=== PATIENT | female | born 2000 | race American Indian/Alaskan Native ===

== ENCOUNTER 2021-03-05 21:11 | Emergency (ER) | payer MEDICAID ==
[2021-03-05 21:17] VITALS: BP 129/49
--- NOTE | 2021-03-05 21:26 | Emergency Department Report ---
ED Female HPI - General Chief complaint: Vaginal Bleeding Stated complaint: VAGINAL BLEEDING Time Seen by Provider: 03/05/21 21:25 Source: patient, RN notes reviewed Mode of arrival: Wheelchair Limitations: No Limitations - History of Present Illness Initial comments: During the history and physical examination, I am chaperoned by Sweetie Akers The patient is a 20-year-old female. She is not known to myself previously. She is 2. She is para 1. She believes that she is having a miscarriage. She presents to the ER today with complaint of lower abdominal cramping, contractions and intermittent vaginal bleeding. She reports that she was seen earlier on today, at [facility], and had laboratory studies, including urinalysis, and an ultrasound performed. However, the patient is uncertain as to her discharge diagnosis. She currently denies headache, neck pain, chest pain, she is nauseous and vomiting, she denies urinary symptoms. She is abdominal cramping, and vaginal bleeding. MD Complaint: vaginal bleeding -: Gradual, days(s) Location: suprapubic Severity: mild Quality: cramping Consistency: intermittent Improves with: other (Rest and position, laying on left hand side) Worsens with: other (Position, palpation) Are you Now?: Yes Associated Symptoms: vaginal bleeding, abdominal pain, nausea/vomiting - Related Data Previous Rx's Medication Instructions Recorded Last Taken Type Acetaminophen [Non-Aspirin Extra 500 mg PO Q6HR PRN #30 tablet 03/06/21 Unknown Rx Strength] Morphine Sulfate [Morphine Sulfate 7.5 mg PO Q6HR PRN #10 tablet 03/06/21 Unknown Rx IR] Ondansetron [Zofran Odt] 4 mg PO Q8HR PRN #20 tab.rapdis 03/06/21 Unknown Rx Allergies Allergy/AdvReac Type Severity Reaction Status Date / Time No Known Allergies Allergy Verified 03/05/21 21:16 ED Review of Systems ROS: Stated complaint: VAGINAL BLEEDING Other details as noted in HPI Constitutional: denies: fever Eyes: denies: eye discharge ENT: denies: epistaxis Respiratory: denies: cough Cardiovascular: denies: chest pain Gastrointestinal: abdominal pain, nausea, vomiting Genitourinary: abnormal menses. denies: dysuria Neurological: weakness Psychiatric: anxiety Hematological/Lymphatic: denies: easy bleeding ED Past Medical Hx - Past Medical History Previous Medical History?: No - Medications Home Medications: Home Medications Medication Instructions Recorded Confirmed Last Taken Type Acetaminophen [Non-Aspirin Extra 500 mg PO Q6HR PRN #30 tablet 03/06/21 Unknown Rx Strength] Morphine Sulfate [Morphine Sulfate 7.5 mg PO Q6HR PRN #10 tablet 03/06/21 Unknown Rx IR] Ondansetron [Zofran Odt] 4 mg PO Q8HR PRN #20 tab.rapdis 03/06/21 Unknown Rx ED Physical Exam - General Limitations: No Limitations General appearance: alert, anxious - Head Head exam: Present: atraumatic, normocephalic - Eye Eye exam: Present: normal appearance, EOMI - ENT ENT exam: Present: normal exam, normal orophraynx, mucous membranes moist, normal external ear exam - Neck Neck exam: Present: normal inspection, full ROM. Absent: tenderness, meningismus - Respiratory Respiratory exam: Present: normal lung sounds bilaterally. Absent: respiratory distress, wheezes, rales, rhonchi, stridor, decreased breath sounds - Cardiovascular Cardiovascular Exam: Present: regular rate, normal rhythm, normal heart sounds. Absent: bradycardia, tachycardia, irregular rhythm, systolic murmur, diastolic murmur, rubs, gallop - GI/Abdominal GI/Abdominal exam: Present: soft. Absent: distended, tenderness, guarding, rebound, rigid, pulsatile mass - External exam: Present: normal external exam, bleeding, other (Chaperoned by Sweetie Akers; patient provided consent for external gynecologic examination) - Extremities Exam Extremities exam: Present: normal inspection, full ROM, other (2+ pulses noted in the bilateral upper and lower extremities. There is no palpable cord. negative Homans sign. Muscular compartments are soft. The pelvis is stable.). Absent: pedal edema, calf tenderness - Back Exam Back exam: Present: normal inspection, full ROM. Absent: tenderness, CVA t enderness (R), CVA tenderness (L), paraspinal tenderness, vertebral tenderness - Neurological Exam Neurological exam: Present: alert, oriented X3, other (No facial droop. Tongue midline. Extraocular movements intact bilaterally. Facial sensation intact to light touch in V1, V2, V3 distribution bilaterally. 5 and a 5 strength in 4 extremities. Sensation intact to light touch in 4 extremities.). Absent: motor sensory deficit - Psychiatric Psychiatric exam: Present: anxious - Skin Skin exam: Present: warm, dry, intact, normal color. Absent: rash ED Course Vital Signs 03/05/21 21:16 Temperature 97.6 F Pulse Rate 80 Respiratory 16 Rate Blood Pressure 129/49 [Left] O2 Sat by Pulse 99 Oximetry - Reevaluation(s) Reevaluation #1: 03/05/21 22:11 Differential diagnosis, including but not limited to: Miscarriage, , intrauterine versus ectopic Assessment and plan: 21-year-old female who is likely experiencing miscarriage. She is afebrile with reassuring vital signs. Her examination is inconsistent, when I walked into the room, she is speaking on her cellular phone, not in any acute distress. She is laying on her left hand side. When asked to lay on her back, she appears to become uncomfortable. However, when I leave the room, she is noted to be back on her cellular phone. Have recommended laboratory studies, type and screen, urinalysis, pelvic ultrasound. Reassess. No active vomiting noted. Discussed with the patient. 03/05/21 23:16 Patient Rh+. Quant hCG positive. CBC acceptable at this time. No active nausea or vomiting. Urinalysis pending. Obstetrics ultrasound pending. 03/06/21 00:55 Ultrasound confirms twin gestation, with demise, and suggestion of miscarriage. There is also the appearance of a subchorionic bleed. Urinalysis pending. Care will be transferred to the oncoming ER physician to follow-up on urinalysis. Extensive discussion had with patient regarding the diagnosis of miscarriage, natural history of miscarriage, and what she may expect. Of note, she is noted to be on her cell phone. 03/06/21 01:15 Urinalysis is not consistent with urinary tract infection. We will discharge the patient Reevaluation #2: 03/06/21 01:18 Patient also counseled on need to avoid consumption and exposure to marijuana and cannabis products. Opiates on urine drug screen are likely secondary to intravenous narcotics that the patient received here in the emergency room. On her final evaluation, she is on her cell phone, with no active vomiting. Have again reiterated the natural history of miscarriage. ED Medical Decision Making - Lab Data Result diagrams: 03/05/21 21:44 Vital Signs 03/05/21 21:16 Temperature 97.6 F Pulse Rate 80 Respiratory 16 Rate Blood Pressure 129/49 [Left] O2 Sat by Pulse 99 Oximetry Vital Signs 03/05/21 21:16 Temperature 97.6 F Pulse Rate 80 Respiratory 16 Rate Blood Pressure 129/49 [Left] O2 Sat by Pulse 99 Oximetry Lab Results 03/05/21 03/05/21 03/05/21 Range/Units 21:44 21:44 21:44 WBC 9.5 (4.5-11.0) K/mm3 RBC 4.62 (3.65-5.03) M/mm3 Hgb 11.3 (10.1-14.3) gm/dl Hct 36.8 (30.3-42.9) % MCV 80 (79-97) fl MCH 25 L (28-32) pg MCHC 31 (30-34) % RDW 20.6 H (13.2-15.2) % Plt Count 207 (140-440) K/mm3 Lymph % (Auto) 8.4 L (13.4-35.0) % [place] % (Auto) 8.3 H (0.0-7.3) % Eos % (Auto) 0.5 (0.0-4.3) % Baso % (Auto) 0.3 (0.0-1.8) % Lymph # (Auto) 0.8 L (1.2-5.4) K/mm3 [place] # (Auto) 0.8 (0.0-0.8) K/mm3 Eos # (Auto) 0.0 (0.0-0.4) K/mm3 Baso # (Auto) 0.0 (0.0-0.1) K/mm3 Seg Neutrophils % 82.5 H (40.0-70.0) % Seg Neutrophils # 7.8 H (1.8-7.7) K/mm3 HCG, Quant 90887 H (0-4) mIU/mL Blood Type A POSITIVE Antibody Screen Negative - Radiology Data Radiology results: pending, report reviewed, image reviewed ULTRASOUND OBSTETRIC REASON FOR EXAM: lower abd pain TECHNIQUE: Transabdominal and transvaginal ultrasound was performed to evaluate a first trimester . COMPARISON: None available. FINDINGS: Twin intrauterine gestation. No heart tones are identified within either fetus. Fetus A crown-rump length measures 1.75 cm, corresponding to gestational age of 8 weeks and 2 days. Fetus B crown-rump length measures 1.3 cm, corresponding to gestational age of 7 weeks and 4 days. Small perigestational hemorrhage. The ovaries are unremarkable with normal Doppler flow. No significant free fluid. IMPRESSION: 1. Twin intrauterine gestation without heart tones identified in either fetus. Ultrasound findings are diagnostic of failure. 2. Small perigestational hemorrhage. Signer Name: Christiano Hickman MD Signed: 03/05/2021 11:23 PM Workstation Name: [id number] Critical care attestation.: If time is entered above; I have spent that time in minutes in the direct care of this critically ill patient, excluding procedure time. ED Disposition Clinical Impression: Miscarriage Disposition: 01 HOME / SELF CARE / HOMELESS Is pt being admited?: No Does the pt Need Aspirin: No Condition: Good Instructions: Miscarriage, [id number] Additional Instructions: Patient was found to have twin gestation today, without heart tones, small perigestational bleed, all suggestive of miscarriage. Please take the pain medication, nausea medication as needed and directed. Follow-up as soon as possible with your outpatient [facility] doctor, to continue care for miscarriage. Rest, avoid heavy lifting and strenuous physical activity, do not engage in sexual activity until cleared to do so by her primary care doctor or your [facility] doctor. Patient will likely continue to experience pain, cramping, bleeding. The patient is to return to the emergency room right away with new pain, projectile vomiting, change in mental status, confusion, bleeding more than 2 pads soaked per hour, or any new, worsened or different symptoms not present on the initial emergency room evaluation Prescriptions: Morphine Sulfate [Morphine Sulfate IR] 7.5 mg PO Q6HR PRN #10 tablet PRN Reason: Pain , Severe (7-10) Acetaminophen [Non-Aspirin Extra Strength] 500 mg PO Q6HR PRN #30 tablet PRN Reason: Pain , Severe (7-10) Ondansetron [Zofran Odt] 4 mg PO Q8HR PRN #20 tab.rapdis PRN Reason: Nausea Referrals: [facility] [Provider Group] - 3-5 Days [facility] [Provider Group] - 3-5 Days [facility] [Provider Group] - 3-5 Days Forms: Work/School Release Form(ED)
[2021-03-05] MEDS ORDERED: SODIUM CHLORIDE 0.9% 1000 ML 1,000 ML IV ONE (21:42)
[2021-03-05] MEDS ORDERED: MORPHINE 4 MG/1 ML INJ IV ONE (21:42)
[2021-03-05] MEDS ORDERED: ONDANSETRON 4 MG/2 ML INJ IV ONE (21:42)
[2021-03-05 22:32] LABS: Basophils % (Auto) 0.3 % (0.0-1.8); Eosinophils % (Auto) 0.5 % (0.0-4.3); Hematocrit 36.8 % (30.3-42.9); Hemoglobin 11.3 gm/dl (10.1-14.3); Lymphocytes # (Auto) 0.8 K/mm3 (1.2-5.4); Lymphocytes % (Auto) 8.4 % (13.4-35.0); Mean Corpuscular HGB Conc 31 % (30-34); Mean Corpuscular Volume 80 fl (79-97); Monocytes # (Auto) 0.8 K/mm3 (0.0-0.8); Monocytes % (Auto) 8.3 % (0.0-7.3); Platelet Count 207 K/mm3 (140-440); Red Blood Count 4.62 M/mm3 (3.65-5.03)
[2021-03-05 22:38] LABS: Red Cell Distribution Width 20.6 % (13.2-15.2)
[2021-03-06] MEDS ORDERED: ACETAMINOPHEN 500 MG TAB PO ONE (00:14)
--- NOTE | 2021-03-06 00:28 | Ultrasound Report ---
ULTRASOUND OBSTETRIC REASON FOR EXAM: lower abd pain TECHNIQUE: Transabdominal and transvaginal ultrasound was performed to evaluate a first trimester pre gnancy. COMPARISON: None available. FINDINGS: Twin intrauterine gestation. No heart tones are identified within either fetus. Fetus A crown-r ump length measures 1.75 cm, corresponding to gestational age of 8 weeks and 2 days. Fetus B crown-ru mp length measures 1.3 cm, corresponding to gestational age of 7 weeks and 4 days. Small perigestatio nal hemorrhage. The ovaries are unremarkable with normal Doppler flow. No significant free fluid. IMPRESSION: 1. Twin intrauterine gestation without heart tones identified in either fetus. Ultrasound find ings are diagnostic of failure. 2. Small perigestational hemorrhage. Signer Name: Christiano Hickman MD Signed: 03/06/2021 12:23 AM Workstation Name: [id number]
[2021-03-06] MEDS ORDERED: MORPHINE 4 MG/1 ML INJ IV ONE ×2 (00:37→02:01)
[2021-03-06] MEDS ORDERED: MORPHINE 2 MG/1 ML INJ ONE ×3 (01:06→02:09)
[2021-03-06 01:10] LABS: Bilirubin,Urine NEG (Negative); Blood,Urine LG (Negative); Color,Urine Yellow (Yellow); Mucus,Urine FEW /HPF; Urobilinogen,Urine < 2.0 mg/dL (<2.0)
[2021-03-06 01:14] LABS: Amphetamine Screen,Urine PRESUMPTIVE NEGATIVE; Benzodiazepines Screen,Urine PRESUMPTIVE NEGATIVE; Cannabinoid Screen,Urine PRESUMPTIVE POSITIVE; Cocaine Screen,Urine PRESUMPTIVE NEGATIVE; Methadone Screen,Urine PRESUMPTIVE NEGATIVE; Opiate Screen,Urine PRESUMPTIVE POSITIVE
--- NOTE | 2021-03-06 02:01 | Emergency Department Report ---
Blank Doc - Documentation Documentation: I was asked to see the patient at her request because she wanted something else for pain. She was upset about the care she had received from a nursing perspective. She states that she was supposed to get something for pain prior to leaving and prior to her IV being removed. I did review the chart. Analgesics were ordered. The patient was discharged as previously written.
[2021-03-06] MEDS ORDERED: HALOPERIDOL LACTATE 5 MG/1 ML INJ IM ONE (03:02)
== END 2021-03-06 04:00 | disposition home or self-care (01) ==
LOC: ED 21:11
DX: O03.9 Complete or unspecified spontaneous abortion without complication (principal); Z79.899 Other long term (current) drug therapy
CPT/HCPCS: 36415; 76801; 76802; 80307; 81001; 84702; 85025; 86850; 86900; 86901; 88305; 96361; 96372; 96374; 96375; 96376; 99284; J1630; J2270; J2405; J7030; Q0162